=== PATIENT | female | born 2000 | race Caucasian/White ===

== ENCOUNTER 2022-08-16 14:56 | Outpatient (CLI) | payer MEDICAID, SELFPAY ==
[2022-08-16] VITALS (9 sets, daily range): BP systolic 143–154; BP diastolic 68–89; PULSE 81–107; BMI 41.9
[2022-08-16 16:04] LABS: Add Urine Microscopic? NO; Charge for UA Resulting for Rev
[2022-08-16 16:10] LABS: Basophils % 0.2 %; Bilirubin Urine Neg (Negative); Blood Urine Neg (Negative); Eosinophils % 0.3 %; Glucose Urine UA Norm (Normal); Hematocrit 36.5 % (37.0-47.0); Hemoglobin 12.3 g/dL (11.5-15.3); Ketones Urine Negative (Negative); Leukocyte Esterase Urine Negative (Negative); Lymphocytes # 2.2 10^3/uL (0.8-4.8); Lymphocytes % 16.5 %; Mean Corpuscular HGB Conc 33.7 g/dL (30.0-36.0); Mean Corpuscular Hemoglobin 30.6 pg (28.0-34.0); Mean Corpuscular Volume 90.8 fl (81-99); Mean Platelet Volume 10.7 fL (7.4-10.4); Monocytes # 0.5 10^3/uL (0.2-0.9); Monocytes % 4.1 %; Neutrophils # 10.34 10^3/uL (1.8-7.7); Neutrophils % 78.4 %; Nitrate Urine Negative (Negative); Nucleated Red Blood Cells % 0 %; Platelet Count 322 10^3/cmm (130-400); Protein Urine Neg (Negative); Red Blood Count 4.02 10^6/uL (4.1-5.3); Red Cell Distribution Width 11.9 % (12.1-15.1); Urine Appearance Clear (CLEAR); Urine Color Straw (Yellow); Urobilinogen Urine Neg (Negative); White Blood Count 13.2 10^3/uL (4.0-10.0); pH Urine 6 (5-7)
[2022-08-16 16:41] LABS: Alanine Aminotransferase 11 U/L (0-33); Albumin Level 3.2 g/dL (3.5-5.2); Alkaline Phosphatase 123 U/L (35-105); Anion Gap 12.8 (5-19); Aspartate Amino Transferase 11 U/L (0-32); Blood Urea Nitrogen 7 mg/dL (6-20); Calcium 9.3 mg/dL (8.5-10.5); Carbon Dioxide 22 mmol/L (22-29); Chloride 104 mmol/L (98-107); Globulin 3.3 g/dL (1.3-4.6); Glomerular Filtration Rate 151.6 mL/min (90-130); Glucose 77 mg/dL (65-115); Osmolality Calculated 277 mOsm/kg (285-295); Potassium 3.8 mmol/L (3.5-5.1); Sodium 135 mmol/L (136-145); Total Bilirubin 0.2 mg/dL (0.15-1.2); Total Protein 6.5 g/dL (6.6-8.7); Uric Acid 3.3 mg/dL (2.4-5.7)
[2022-08-16 16:50] LABS: Urine Creatinine 22 mg/dL (28-217); Urine Protein Random 4 mg/dL
[2022-08-16 16:55] LABS: UPRO/UCREAT Ratio 0.18 mg/mg CR
== END 2022-08-16 17:10 | disposition home or self-care (01) ==
LOC: OPOB 15:00 → OBGYN 15:02
PROVIDERS: PCP Nurse Practitioner; Visit Provider Family Medicine
DX: O16.9 Unspecified maternal hypertension, unspecified trimester (principal); Z3A.00 Weeks of gestation of pregnancy not specified
CPT/HCPCS: 36415; 59025; 80053; 81003; 82570; 84156; 84550; 85025; 99211

== ENCOUNTER 2024-05-27 01:10 | Observation (INO) | payer MEDICAID, SELFPAY ==
[2024-05-26] VITALS (8 sets, daily range): BP systolic 106–137; BP diastolic 55–70; PULSE 81–102; O2SAT 98
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
[2024-05-27] VITALS (25 sets, daily range): BP systolic 108–140; BP diastolic 52–79; PULSE 78–106; RESP 16–18; TEMP 36.6–36.7
[2024-05-27 02:35] LABS: INR 0.95 (0.8-1.2)
[2024-05-27 02:36] LABS: Basophils # 0.1 10^3/uL (0.0-0.1); Basophils % 0.3 %; Eosinophils # 0.1 10^3/uL (0.0-0.8); Eosinophils % 0.6 %; Hematocrit 37.1 % (36-47); Lymphocytes # 3.6 10^3/uL (0.8-4.8); Lymphocytes % 23.2 %; Mean Corpuscular HGB Conc 32.9 g/dL (30-55); Mean Corpuscular Hemoglobin 27.3 pg (27-33); Monocytes # 0.6 10^3/uL (0.2-0.9); Monocytes % 3.8 %; Neutrophils # 11.05 10^3/uL (1.8-7.7); Neutrophils % 71.6 %; Nucleated Red Blood Cells % 0 %; Partial Thromboplastin Time 28.4 SECONDS (23.9-36.7); Platelet Count 367 10^3/cmm (157-399); Red Blood Count 4.47 10^6/uL (3.85-5.65); Red Cell Distribution Width 13.8 % (12.1-15.1); White Blood Count 15.43 10^3/uL (3.29-11.43)
[2024-05-27 03:28] LABS: Alanine Aminotransferase 11 U/L (0-33); Albumin Level 3.4 g/dL (3.5-5.2); Alkaline Phosphatase 142 U/L (35-105); Anion Gap 13.4 (5-19); Aspartate Amino Transferase 12 U/L (0-32); Blood Urea Nitrogen 6 mg/dL (6-20); Calcium 8.5 mg/dL (8.5-10.5); Carbon Dioxide 19 mmol/L (22-29); Chloride 104 mmol/L (98-107); Creatinine Clr Calc Pharmacy 251.9517; Globulin 2.9 g/dL (1.3-4.6); Glomerular Filtration Rate 150.3 mL/min (90-130); Glucose 129 mg/dL (65-115); Osmolality Calculated 275 mOsm/kg (285-295); Potassium 3.4 mmol/L (3.5-5.1); Sodium 133 mmol/L (136-145); Total Bilirubin 0.2 mg/dL (0.15-1.2); Total Protein 6.3 g/dL (6.6-8.7)
[2024-05-27] MEDS: potassium chloride ER 20 mEq Tablet PO (09:35)
--- NOTE | 2024-05-27 10:25 | PC.NURSE ---
Rhogam given IM to left deltoid
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
== END 2024-05-27 12:46 | disposition home or self-care (01) ==
LOC: OPOB 02:38 → OBGYN 07:03
PROVIDERS: Admitting Provider Family Medicine; PCP Nurse Practitioner; Visit Provider Family Medicine
DX: O9A.213 Injury, poisoning and certain other consequences of external causes complicating pregnancy, third trimester (principal); S39.91XA Unspecified injury of abdomen, initial encounter; Z3A.35 35 weeks gestation of pregnancy; V40.5XXA Car driver injured in collision with pedestrian or animal in traffic accident, initial encounter; Y92.410 Unspecified street and highway as the place of occurrence of the external cause; Z87.59 Personal history of other complications of pregnancy, childbirth and the puerperium
CPT/HCPCS: 36415; 36430; 59025; 76819; 80053; 80503; 85025; 85460; 85610; 85730; 86850; 86870; 86900; 90384; 99211; G0378